=== PATIENT | male | born 1995 ===

== ENCOUNTER 2017-12-29 17:59 | Emergency (ER) | payer OTHER ==
[2017-12-29 18:00] VITALS: BMI 41.3
[2017-12-29 18:20] VITALS: BP 140/84; PULSE 83; RESP 16; TEMP 98; O2SAT 100
--- NOTE | 2017-12-29 19:07 | ED PDOC ---
HPI: Wound Care - HPI Time Seen by Provider: 12/29/17 18:24 Chief Complaint (Nursing): Abnormal Skin Integrity Chief Complaint (Provider): wound care History Per: Patient Additional Complaint(s): 22-year-old male with history of hidradenitis suppurativa presents to emergency Department for wound check and dressing change. Patient has chronic wound to right groin region and states he is out of gauze at home and dressing is saturated. He has an appointment on Sunday with his surgeon at [facility] for further evaluation. Patient denies acute pain, fever or chills. Patient states he is waiting for skin graft procedure. Past Medical History Reviewed: Historical Data, Nursing Documentation, Vital Signs Vital Signs: Last Vital Signs Temp 98.0 F 12/29/17 18:17 Pulse 83 12/29/17 18:17 Resp 16 12/29/17 18:17 BP 140/84 12/29/17 18:17 Pulse Ox 100 12/29/17 18:17 - Medical History Other PMH: Hidradenitis suppurativa - Surgical History Other surgeries: Multiple wound debridement surgeries - Family History Family History: States: No Known Family Hx - Living Arrangements Living Arrangements: With Family - Social History Current smoker - smoking cessation education provided: No Alcohol: None Drugs: Denies - Home Medications Home Medications: Ambulatory Orders Medication Instructions Recorded Amoxicillin/Clavulanate [Augmentin 1 tab PO Q12H #0 tab 06/05/16 875 MG-125 MG Tab] Fluconazole [Diflucan] 200 mg PO DAILY #0 tab 06/05/16 Nystatin [Nystop Topical Powder] 1 applic TOP BID #0 bottle 06/05/16 - Allergies Allergies/Adverse Reactions: Allergies Allergy/AdvReac Type Severity Reaction Status Date / Time sulfamethoxazole Allergy Severe RASH Verified 12/29/17 18:17 [From Bactrim] trimethoprim [From Bactrim] Allergy Severe RASH Verified 12/29/17 18:17 vitamin A Allergy Severe HEADACHE Verified 12/29/17 18:17 Review of Systems ROS Statement: Except As Marked, All Systems Reviewed And Found Negative Constitutional: Negative for: Fever, Chills Skin: Positive for: Other (wound care, abdominal wound) Physical Exam - Reviewed Nursing Documentation Reviewed: Yes Vital Signs Reviewed: Yes - Physical Exam Appears: Positive for: Well, Non-toxic, No Acute Distress Skin: Negative for: Rash Eye Exam: Positive for: Normal appearance Gastrointestinal/Abdominal: Positive for: Other (large area of granulation tissue with mild serosanguinous drainage noted to right lower quadrant and overlying skin fold of right lower abdomen, mild tenderness to palpation, no abscess formation) Neurologic/Psych: Positive for: Alert, Oriented, Gait (steady) - ECG O2 Sat by Pulse Oximetry: 100 Pulse Ox Interpretation: Normal Medical Decision Making Medical Decision Makin22 year old male with abdominal wall wound Procedure Note: Open wound was cleansed with normal saline, wet to dry dressing was applied, secured with abdominal pads and paper tape, N/V intact s/ p placement. Patient has follow up on Sunday with his surgeon at [facility]. Patient is aware he can return any time if acutely worse. Disposition - Clinical Impression Clinical Impression: Hidradenitis suppurativa, Encounter for wound re-check - Patient ED Disposition Is Patient to be Admitted: No Counseled Patient/Family Regarding: Diagnosis, Need For Followup - Disposition Referrals: [facility] [Outside] Disposition: Routine/Home Disposition Time: 19:06 Condition: STABLE Additional Instructions: Keep area clean and dry. Follow-up on Sunday with your surgeon or return any time if acutely worse. Instructions: Hidradenitis Suppurativa, Wound Care Forms: [employer] (Japanese)
== END 2017-12-29 19:22 | disposition home or self-care (01) ==
LOC: H.ER 17:59
DX: L73.2 Hidradenitis suppurativa (principal)

== ENCOUNTER 2018-01-03 19:18 | Emergency (ER) | payer OTHER ==
[2018-01-03 19:18] VITALS: BMI 41.3
[2018-01-03 19:56] VITALS: BP 117/68; PULSE 82; RESP 16; TEMP 98.4; O2SAT 99
--- NOTE | 2018-01-03 21:43 | ED PDOC ---
HPI: Wound Care - HPI Time Seen by Provider: 01/03/18 20:37 Chief Complaint (Nursing): Wound Check Chief Complaint (Provider): Wound check History Per: Patient Exam Limitations: no limitations Additional Complaint(s): 22yo male, presents to ED requesting a dressing change for a wound on his right inguinal area. Patient recently had surgery to his right inguinal area and has a home nurse who visits him 3x per week; he has been unable to change the dressing himself as he does not have proper supplies at home. Otherwise, he denies any fever, chills, abdominal pain. No other medical complaints. Past Medical History Reviewed: Historical Data, Nursing Documentation, Vital Signs Vital Signs: Last Vital Signs Temp 98.4 F 01/03/18 19:54 Pulse 82 01/03/18 19:54 Resp 16 01/03/18 19:54 BP 117/68 01/03/18 19:54 Pulse Ox 99 01/03/18 19:54 - Medical History PMH: Hypothyroidism (now corrected), Seizures - Surgical History Surgical History: No Surg Hx - Family History Family History: States: Unknown Family Hx - Immunization History Hx Tetanus Toxoid Vaccination: No Hx Influenza Vaccination: No Hx Pneumococcal Vaccination: No - Home Medications Home Medications: Ambulatory Orders Medication Instructions Recorded Amoxicillin/Clavulanate [Augmentin 1 tab PO Q12H #0 tab 06/05/16 875 MG-125 MG Tab] Fluconazole [Diflucan] 200 mg PO DAILY #0 tab 06/05/16 Nystatin [Nystop Topical Powder] 1 applic TOP BID #0 bottle 06/05/16 - Allergies Allergies/Adverse Reactions: Allergies Allergy/AdvReac Type Severity Reaction Status Date / Time sulfamethoxazole Allergy Severe RASH Verified 01/03/18 19:53 [From Bactrim] trimethoprim [From Bactrim] Allergy Severe RASH Verified 01/03/18 19:53 vitamin A Allergy Severe HEADACHE Verified 01/03/18 19:53 Review of Systems ROS Statement: Except As Marked, All Systems Reviewed And Found Negative Constitutional: Negative for: Fever, Chills Gastrointestinal: Negative for: Abdominal Pain Skin: Positive for: Other (wound to right inguinal area) Physical Exam - Reviewed Nursing Documentation Reviewed: Yes Vital Signs Reviewed: Yes - Physical Exam Comments: GENERAL APPEARANCE: Patient is awake, alert, oriented x 3, in mild painful distress. SKIN: +open nondraining wound to the R inguinal area, no edema. PULMONARY: lungs clear, no rhonchi, no wheezing. CARDIAC: regular rate and rhythm, no murmur, no gallop. ABDOMEN: soft, nontender. EXTREMITIES: no deformity, full range of motion, no tenderness. - ECG O2 Sat by Pulse Oximetry: 99 Medical Decision Making Medical Decision Making: Impression: Wound care Plan: -- Wound cleaned and irrigated with normal saline. Dressing applied by RN. Advised to follow up with surgeon in 1-2 days without fail. Return to the emergency room at any time for any new or worsening symptoms. Patient states he fully agrees with and understands discharge instructions. States that he agrees with the plan and disposition. Verbalized and repeated discharge instructions and plan. I have given the patient opportunity to ask any additional questions. Scribe Attestation: Documented by Neena Okeefe acting as a scribe for Ольга Mesa PA-C. Provider Attestation: All medical record entries made by the Scribe were at my direction and personally dictated by me. I have reviewed the chart and agree that the record accurately reflects my personal performance of the history, physical exam, medical decision making, and the department course for this patient. I have also personally directed, reviewed, and agree with the discharge instructions and disposition. Disposition - Clinical Impression Clinical Impression: Encounter for postoperative wound check - Patient ED Disposition Is Patient to be Admitted: No Counseled Patient/Family Regarding: Diagnosis, Need For Followup - Disposition Disposition: Routine/Home Disposition Time: 21:00 Condition: STABLE Additional Instructions: Thank you for letting us take care of you today. You were treated for wound check. The emergency medical care you received today was directed at your acute symptoms. Return to the Emergency Department if your symptoms worsen, do not improve, or if you have any other problems. Please contact your surgeon in 2 days for re-evaluation and follow up. Bring any paperwork you were given at discharge with you along with any medications you are taking to your follow up visit. Our treatment cannot replace ongoing medical care by a primary care provider (PCP) outside of the emergency department. Thank you for allowing the [facility] team to be part of your care today. Instructions: Wound Care (DC) Forms: [employer] (North Korean) - PA / ASSISTANT PROFESSOR OF ANTHROPOLOGY / Resident Statement MD/DO has reviewed & agrees with the documentation as recorded.
== END 2018-01-03 22:13 | disposition home or self-care (01) ==
LOC: H.ER 19:18
DX: Z48.01 Encounter for change or removal of surgical wound dressing (principal); Z98.890 Other specified postprocedural states; E03.9 Hypothyroidism, unspecified

== ENCOUNTER 2018-01-05 20:16 | Emergency (ER) | payer OTHER ==
[2018-01-05 20:17] VITALS: BMI 41.3
[2018-01-05 20:26] VITALS: BP 139/84; RESP 16; TEMP 98; O2SAT 97
--- NOTE | 2018-01-05 20:54 | ED PDOC ---
HPI: Wound Care - HPI Time Seen by Provider: 01/05/18 20:38 Chief Complaint (Nursing): Wound Check Chief Complaint (Provider): Wound Care History Per: Patient History Of Present Illness: 22 year old male presents to the ED post abdominal surgery(12/12/2017) for wound care. The patient reports that the surgery was for treatment of wound infection of the right inguinal area. He states that he is pending a skin graft. Patient receives wound care with visiting nurse at home except for Sunday and Sunday. Denies discharge, fevers, chills. Exam Limitations: no limitations Current Symptoms Are (Timing): Still Present Location Of Injury: Right: Abdomen (right inguinal area) Past Medical History Reviewed: Historical Data, Nursing Documentation, Vital Signs Vital Signs: Last Vital Signs Temp 98 F 01/05/18 20:23 Pulse 105 H 01/05/18 20:23 Resp 16 01/05/18 20:23 BP 139/84 01/05/18 20:23 Pulse Ox 97 01/05/18 20:23 - Medical History PMH: Hypothyroidism (now corrected), Seizures - Surgical History Other surgeries: Abdominal Surgery - Family History Family History: States: Unknown Family Hx - Immunization History Hx Tetanus Toxoid Vaccination: No Hx Influenza Vaccination: No Hx Pneumococcal Vaccination: No - Home Medications Home Medications: Ambulatory Orders Medication Instructions Recorded Amoxicillin/Clavulanate [Augmentin 1 tab PO Q12H #0 tab 06/05/16 875 MG-125 MG Tab] Fluconazole [Diflucan] 200 mg PO DAILY #0 tab 06/05/16 Nystatin [Nystop Topical Powder] 1 applic TOP BID #0 bottle 06/05/16 - Allergies Allergies/Adverse Reactions: Allergies Allergy/AdvReac Type Severity Reaction Status Date / Time sulfamethoxazole Allergy Severe RASH Verified 01/03/18 19:53 [From Bactrim] trimethoprim [From Bactrim] Allergy Severe RASH Verified 01/03/18 19:53 vitamin A Allergy Severe HEADACHE Verified 01/03/18 19:53 Review of Systems ROS Statement: Except As Marked, All Systems Reviewed And Found Negative Constitutional: Negative for: Fever, Chills Gastrointestinal: Positive for: Other (healing surgical wound-right abdomen) Physical Exam - Reviewed Nursing Documentation Reviewed: Yes Vital Signs Reviewed: Yes - Physical Exam Appears: Positive for: Non-toxic, No Acute Distress Head Exam: Positive for: NORMAL INSPECTION Skin: Positive for: Normal Color, Warm, Dry. Negative for: Rash Eye Exam: Positive for: Normal appearance, EOMI, PERRL Gastrointestinal/Abdominal: Positive for: Normal Exam, Bowel Sounds, Soft, Other (15cm wound right inguinal area with bleeding noted after removal of dressing no signs of surrounding erythema or cellulitis. ). Negative for: Tenderness, Guarding, Rebound Neurologic/Psych: Positive for: Alert, Oriented, Gait - ECG O2 Sat by Pulse Oximetry: 97 (RA) Pulse Ox Interpretation: Normal Medical Decision Making Medical Decision Makin Initial Impression 22 year old male presenting for wound care Initial Plan: wet to dry dressing placed by RN. Patient is medically stable and will be discharged home. Documented by Daina Perea acting as a scribe for Rosibel Bruno PA-C. All medical record entries made by the Scribe were at my direction and personally dictated by me. I have reviewed the chart and agree that the record accurately reflects my personal performance of the history, physical exam, medical decision making, and the department course for this patient. I have also personally directed, reviewed, and agree with the discharge instructions and disposition. Disposition - Clinical Impression Clinical Impression: Encounter for wound re-check - Patient ED Disposition Is Patient to be Admitted: No Counseled Patient/Family Regarding: Studies Performed - Disposition Disposition: Routine/Home Disposition Time: 20:45 Condition: FAIR Instructions: Surgical Wound (DC) Forms: [employer] (Gabonese) - POA Present On Arrival: None
[2018-01-05 21:16] VITALS: PULSE 100
== END 2018-01-05 21:17 | disposition home or self-care (01) ==
LOC: H.ER 20:16
DX: Z48.00 Encounter for change or removal of nonsurgical wound dressing (principal); E03.9 Hypothyroidism, unspecified

== ENCOUNTER 2018-01-06 20:23 | Emergency (ER) | payer OTHER ==
[2018-01-06 20:23] VITALS: BMI 41.3
[2018-01-06 20:30] VITALS: BP 126/84; PULSE 97; RESP 18; TEMP 98.2; O2SAT 99
--- NOTE | 2018-01-06 20:41 | ED PDOC ---
HPI: Wound Care - HPI Time Seen by Provider: 01/06/18 20:40 Chief Complaint (Nursing): Wound Check History Per: Patient Exam Limitations: no limitations Current Symptoms Are (Timing): Still Present Location Of Injury: Anterior: Abdomen Additional Complaint(s): 22 year old male presents to the ED post abdominal surgery(12/12/2017) for wound care. The patient reports that the surgery was for treatment of wound infection of the right inguinal area. He states that he is pending a skin graft. Patient receives wound care with visiting nurse at home except for Sunday and Sunday. Denies discharge, fevers, chills. Past Medical History Reviewed: Historical Data, Nursing Documentation, Vital Signs Vital Signs: Last Vital Signs Temp 98.2 F 01/06/18 20:27 Pulse 97 H 01/06/18 20:27 Resp 18 01/06/18 20:27 BP 126/84 01/06/18 20:27 Pulse Ox 99 01/06/18 20:27 - Medical History PMH: Hypothyroidism (now corrected), Seizures - Family History Family History: States: Unknown Family Hx - Immunization History Hx Tetanus Toxoid Vaccination: No Hx Influenza Vaccination: No Hx Pneumococcal Vaccination: No - Home Medications Home Medications: Ambulatory Orders Medication Instructions Recorded Amoxicillin/Clavulanate [Augmentin 1 tab PO Q12H #0 tab 06/05/16 875 MG-125 MG Tab] Fluconazole [Diflucan] 200 mg PO DAILY #0 tab 06/05/16 Nystatin [Nystop Topical Powder] 1 applic TOP BID #0 bottle 06/05/16 - Allergies Allergies/Adverse Reactions: Allergies Allergy/AdvReac Type Severity Reaction Status Date / Time sulfamethoxazole Allergy Severe RASH Verified 01/03/18 19:53 [From Bactrim] trimethoprim [From Bactrim] Allergy Severe RASH Verified 01/03/18 19:53 vitamin A Allergy Severe HEADACHE Verified 01/03/18 19:53 Review of Systems ROS Statement: Except As Marked, All Systems Reviewed And Found Negative Constitutional: Negative for: Fever Respiratory: Negative for: Shortness of Breath Gastrointestinal: Positive for: Other (abdominal would s/p surgery ) Physical Exam - Reviewed Nursing Documentation Reviewed: Yes Vital Signs Reviewed: Yes - Physical Exam Appears: Positive for: Well, Non-toxic, No Acute Distress Head Exam: Positive for: ATRAUMATIC, NORMAL INSPECTION, NORMOCEPHALIC Skin: Positive for: Normal Color, Warm Eye Exam: Positive for: EOMI, Normal appearance, PERRL Gastrointestinal/Abdominal: Positive for: Normal Exam, Bowel Sounds, Soft, Other (15cm wound right inguinal area with bleeding noted after removal of dressing no signs of surrounding erythema or cellulitis.). Negative for: Tenderness, Distended, Guarding, Rebound Neurologic/Psych: Positive for: Alert, product safety specialist II-XII, Oriented - ECG O2 Sat by Pulse Oximetry: 99 (room air) Pulse Ox Interpretation: Normal - Progress ED Course And Treament: wet to dry dressing by RN Medical Decision Making Medical Decision Making: Scribe Attestation: Padmini Blanc MD Scribe Attestation: All medical record entries made by the Scribe were at my direction and personally dictated by me. I have reviewed the chart and agree that the record accurately reflects my personal performance of the history, physical exam, medical decision making, and the department course for this patient. I have also personally directed, reviewed, and agree with the discharge instructions and disposition. Disposition - Clinical Impression Clinical Impression: Encounter for postoperative wound check - Patient ED Disposition Is Patient to be Admitted: No - Disposition Disposition: Routine/Home Disposition Time: 21:24 Condition: FAIR Instructions: Surgical Wound (DC) Forms: [employer] (Persian)
== END 2018-01-06 21:26 | disposition home or self-care (01) ==
LOC: H.ER 20:23
DX: Z48.01 Encounter for change or removal of surgical wound dressing (principal); Z98.890 Other specified postprocedural states; E03.9 Hypothyroidism, unspecified